=== PATIENT | female | born 1945 | race Caucasian/White ===

== ENCOUNTER 2018-09-12 15:59 | Emergency (ER) | payer MEDICARE, OTHER ==
[~2018-09-12] VITALS: Ht 139.7 cm; Wt 71.8 kg
[~2018-09-12 15:59] MED LIST: ATOR10TA65 PO; CLOB15OI15; DIGO125T PO; DOCU-144 PO; FERR-55 ORAL; FURO-109 PO; GLIM4TAB PO; HYDR-843 PO; LINA1TAB5 PO; LOSA25TA12 PO; METO-319 ORAL; METO-429 PO; POTA20TA8 PO; RIVA20TA5 PO; SERT50TA6 PO; TRAV4OP25 BOTH EYES; [UNRECOGNIZED DRUG - CODE] OP
[2018-09-12 16:00] VITALS: Ht 139.7 cm; Wt 71.8 kg
--- NOTE | 2018-09-12 16:47 | ERD ---
ER Documentation Chief Complaint Chief Complaint mid back pain/AP x3 w/ n/v/dysuria/frequency/urgency HPI 73-year-old woman complaining of epigastric abdominal discomfort, belching, fullness after eating and some nausea x3 days. She states the pain sometimes radiates to the back and she has had similar episodes before. She was triaged as having dysuria and urinary frequency although she denies the symptoms she has no complaints of suprapubic abdominal pain, no complaints of dysuria or hematuria, no back or flank pain. Patient denies chest pain or shortness of breath, no vomiting or diarrhea ROS All systems reviewed and are negative except as per history of present illness. Medications Home Meds Active Scripts Mag Hydrox/Al Hydrox/Simeth (Maalox Advanced Suspension) 355 Ml Oral.susp, 2 TSP PO TID PRN for PAIN AND/OR INFLAMMATION, #12 OZ Prov:FIFI MCNAMARA MD 09/12/18 Ondansetron Hcl* (Zofran*) 4 Mg Tablet, 4 MG PO Q8H PRN for NAUSEA AND/OR VOMITING, #20 TAB Prov:FIFI MCNAMARA MD 09/12/18 Omeprazole* (Omeprazole*) 40 Mg Capsule.dr, 40 MG PO DAILY, #14 CAP Prov:FIFI MCNAMARA MD 09/12/18 Reported Medications Potassium Chloride* (K-Dur*) 10 Meq Tab.prt.sr, 10 MEQ PO DAILY, TAB 09/12/18 Hydroxyzine Hcl* (Hydroxyzine Hcl*) 25 Mg Tablet, 25 MG PO DAILY PRN for ITCHING, #30 TAB 09/12/18 Linagliptin/Metformin HCl (Jentadueto Xr 2.5 mg-1,000 mg) 1 Each Tab.bp.24h, 1 EACH PO BID, TAB 09/12/18 Atorvastatin Calcium (Atorvastatin Calcium) 10 Mg Tablet, 10 MG PO QHS, #30 TAB 09/12/18 Losartan Potassium* (Losartan Potassium*) 25 Mg Tablet, 25 MG PO DAILY, TAB 09/12/18 Furosemide* (Furosemide*) 40 Mg Tablet, 40 MG PO DAILY, TAB 09/12/18 Metoprolol Tartrate* (Lopressor*) 50 Mg Tab, 50 MG PO TID PRN for NEEDED, #60 TAB 09/12/18 Digoxin* (Digitek*) 125 Mcg Tablet, 0.125 MG PO DAILY, TAB 09/12/18 Discontinued Reported Medications Clobetasol Propionate* (Clobetasol Propionate*) 15 Gm Oint, DAILY, #45 06/08/15 Metoprolol Succinate* (Toprol XL*) 50 Mg Tab.er.24h, 50 MG ORAL DAILY, #30 06/08/15 Ferrous Sulfate* (Ferrous Sulfate*) 325 Mg Tablet, 325 MG ORAL BID, #60 06/08/15 Loteprednol Etabonate* (Lotemax*) 5 Ml Drops.susp, 1 DROP OP DAILY, #5 06/08/15 Furosemide* (Lasix*) 40 Mg Tablet, 40 MG PO DAILY, TAB 04/19/14 Hydroxyzine Hcl* (Hydroxyzine Hcl*) 25 Mg Tablet, 25 MG PO TID, TAB 04/19/14 Travoprost* (Travatan*) 0.004%-2.5 Ml Opht, 1 DROP BOTH EYES HS, EA 04/19/14 Sertraline Hcl* (Sertraline Hcl*) 50 Mg Tablet, 50 MG PO DAILY, TAB 04/19/14 Digoxin* (Digoxin*) 0.125 Mg Tab, 0.125 MG PO DAILY, TAB 04/19/14 Glimepiride* (Glimepiride*) 4 Mg Tablet, 4 MG PO BID, TAB 04/19/14 Losartan Potassium* (Losartan Potassium*) 25 Mg Tablet, 25 MG PO DAILY, TAB 04/19/14 Atorvastatin Calcium (Atorvastatin Calcium) 10 Mg Tab, 10 MG PO HS, TAB 04/19/14 Linagliptin-Metformin (Jentadueto) 2.5-1,000 Mg Tablet, 1 TAB PO BID, TAB 04/19/14 Potassium Chloride* (Klor-Con*) 10 Meq Tabsr, 10 MEQ PO DAILY, TAB.SA 04/19/14 Docusate Sodium* (Colace*) 100 Mg Capsule, 100 MG PO BID, CAP 04/19/14 Discontinued Scripts Docusate Sodium* (Colace*) 100 Mg Capsule, 100 MG PO BID, #14 CAP Prov:SHAE DIOR MD 06/08/15 Rivaroxaban* (Xarelto*) 20 Mg Tablet, 20 MG PO WITH DINNER for 30 Days, TAB Prov:KIRIT MAY MD 07/04/14 Metoprolol Tartrate* (Lopressor*) 50 Mg Tab, 50 MG PO TID for 30 Days, TAB Prov:KIRIT MAY MD 07/04/14 Allergies Allergies: Coded Allergies: Penicillins (Verified Allergy, Unknown, 09/12/18) PMhx/Soc Atrial fibrillation, hypertension, congestive heart failure, diabetes mellitus type 2, dyslipidemia, mitral stenosis, major depression History of Surgery: Yes (appendectomy, uterine myoma) Anesthesia Reaction: No Hx Neurological Disorder: No Hx Respiratory Disorders: No Hx Cardiac Disorders: Yes (hypertension, atrial fibrillation, congestive heart failure) Hx Psychiatric Problems: Yes (major depression) Hx Miscellaneous Medical Probl: Yes (renal insufficiency, dyslipidemia, diabetes) Hx Alcohol Use: No Hx Substance Use: No Hx Tobacco Use: No Physical Exam Vitals Vital Signs Date Temp Pulse Resp B/P (MAP) Pulse Ox O2 O2 Flow FiO2 Time Delivery Rate 09/12/18 87 18 167/70 97 Room Air 20:49 (102) 09/12/18 86 15 151/74 97 Room Air 19:14 (99) 09/12/18 97.9 97 18 161/79 97 16:00 (106) Physical Exam GENERAL: Well-developed, well-nourished, well-hydrated, in no apparent distress, looks nontoxic in appearance HEENT: Moist mucous membranes, pink conjunctiva, no cervical spine tenderness or step-off deformities, no goiter, no jaundice or icterus, extraocular movements intact without pain. No submandibular induration, and no pharyngeal erythema CARDIAC: Regular rate and rhythm, no murmurs rubs or gallops LUNGS: Clear bilaterally no wheezing crackles or stridor ABDOMEN: Soft nontender, no guarding, no rigidity, no rebound, no psoas sign no obturator sign. Normoactive bowel sounds SKIN: Warm and dry to touch, no abrasions, contusions, or hematomas, no lacerations, no ecchymosis, no target lesions, and without ulcers EXTREMITIES: No clubbing cyanosis or edema, calves are bilaterally symmetrical, no Homans sign, no popliteal cord sign. Distal pulses equal and bilateral PSYCH: Normal affect without agitation or irritability Result Diagram: 09/12/18 1710 09/12/18 1710 Results 24 hrs Laboratory Tests Test 09/12/18 17:07 09/12/18 17:10 Urine Color YELLOW Urine Clarity CLEAR Urine pH 5.0 Urine Specific [place] 1.020 Urine Ketones NEGATIVE mg/dL Urine Nitrite NEGATIVE mg/dL Urine Bilirubin NEGATIVE mg/dL Urine Urobilinogen 2+ mg/dL Urine Leukocyte Esterase NEGATIVE Tammie/ul Urine Microscopic RBC 10 /HPF Urine Microscopic WBC 2 /HPF Urine Mucus MODERATE /HPF Urine Hemoglobin 2+ mg/dL Urine Glucose NEGATIVE mg/dL Urine Total Protein NEGATIVE mg/dl White Blood Count 8.2 10^3/ul Red Blood Count 5.00 10^6/ul Hemoglobin 13.9 g/dl Hematocrit 41.4 % Mean Corpuscular Volume 82.8 fl Mean Corpuscular Hemoglobin 27.8 pg Mean Corpuscular Hemoglobin Concent 33.6 g/dl Red Cell Distribution Width 13.7 % Platelet Count 192 10^3/UL Mean Platelet Volume 10.2 fl Immature Granulocytes % 0.200 % Neutrophils % 62.8 % Lymphocytes % 26.9 % Monocytes % 7.4 % Eosinophils % 2.1 % Basophils % 0.6 % Nucleated Red Blood Cells % 0.0 /100WBC Immature Granulocytes # 0.020 10^3/ul Neutrophils # 5.1 10^3/ul Lymphocytes # 2.2 10^3/ul Monocytes # 0.6 10^3/ul Eosinophils # 0.2 10^3/ul Basophils # 0.1 10^3/ul Nucleated Red Blood Cells # 0.0 10^3/ul Sodium Level 141 mmol/L Potassium Level 4.1 mmol/L Chloride Level 104 mmol/L Carbon Dioxide Level 25 mmol/L Anion Gap 12 Blood Urea Nitrogen 17 mg/dl Creatinine 0.59 mg/dl Est Glomerular Filtrat Rate mL/min mL/min Glucose Level 142 mg/dl Calcium Level 9.7 mg/dl Total Bilirubin 2.1 mg/dl Direct Bilirubin 0.00 mg/dl Indirect Bilirubin 2.1 mg/dl Aspartate Amino Transf (AST/SGOT) 22 IU/L Alanine Aminotransferase (ALT/SGPT) 21 IU/L Alkaline Phosphatase 94 IU/L Troponin I 0.025 ng/ml Total Protein 8.1 g/dl Albumin 4.6 g/dl Globulin 3.50 g/dl Albumin/Globulin Ratio 1.31 Lipase 56 U/L Current Medications Medications Dose Sig/Jeannie Start Time Status Last (Trade) Ordered Route PRN Stop Time Admin Dose Reason Admin Sodium 1,000 ml @ Q1H STAT 09/12/18 DC 09/12/18 Chloride 1,000 mls/hr IV 16:49 09/12/18 17:13 17:48 Ondansetron 4 mg ONCE STAT 09/12/18 DC 09/12/18 HCl (Zofran IV 17:06 09/12/18 17:14 Inj) 17:07 Ketorolac 15 mg ONCE STAT 09/12/18 DC 09/12/18 Tromethamine IV 17:06 09/12/18 17:15 (Toradol) 17:07 Procedures/MDM IV line was established patient was placed on satellite project site monitor rhythm strip revealed a sinus rhythm at about 80 bpm with upright P and T waves. Patient was afebrile EKG performed, read by me revealed an atrial fibrillation rate controlled at 81 bpm, normal axis, narrow QRS complex, no concerning ST elevations or depressions noted I administered 1 L normal saline IV, Toradol 15 mg IV, Zofran [address] scan of the abdomen pelvis was performed,IMPRESSION: 1. Moderate to markedly enlarged heart. Findings as above suspicious for pulmonary edema. No pleural effusions 2. Borderline hepatomegaly with a somewhat nodular liver contour, correlate for intrinsic liver disease. 3. Wall thickening of the stomach slightly more than expected for its partially collapsed state. Findings are nonspecific and may be within normal limits, reflect mild changes of gastritis, or much less likely neoplasm. Please consider follow-up direct visualization plus or minus tissue sampling. CBC and electrolytes were unremarkable, liver function tests were normal, troponin negative, urinalysis negative for infection. Patient's abdominal symptoms did improve and she had no episodes of vomiting while here, she is able to tolerate p.o. without difficulty. I did ask her again about genitourinary symptoms and patient denies any, I did tell her to follow-up with her PMD for repeat UA in the office in the next 1 week. Differential diagnoses considered, included but not limited to acute coronary syndrome, pulmonary embolism, aortic dissection, abdominal aortic aneurysm, seps is, stroke, meningitis, encephalitis, pneumonia, appendicitis, cholecystitis, bowel obstruction, pyelonephritis, nephrolithiasis, cystitis, as well as metabolic, hematologic, and electrolyte abnormalities. As well as abscess, cellulitis, fractures, and dislocations. Patient feels much better at this time, and vital signs are normal, symptoms have improved. I did give strict instructions to return to the ED if symptoms continue or worsen, patient will otherwise follow-up with primary care physic anil. Patient understood instructions and agreed to plan. Disclaimer: Inadvertent spelling and grammatical errors are likely due to EHR/dictation software use and do not reflect on the overall quality of patient care. Also, please note that the electronic time recorded on this note does not necessarily reflect the actual time of the patient encounter. Departure Diagnosis: Primary Impression: Abdominal pain Abdominal location: epigastric Qualified Codes: R10.13 - Epigastric pain Additional Impression: Gastritis Gastritis type: unspecified gastritis Chronicity: acute Gastritis bleeding: without bleeding Qualified Codes: K29.00 - Acute gastritis without bleeding Condition: FIFI Suresh MD Sep 12, 2018 16:47
[2018-09-12] MEDS ORDERED: SOD CHLORIDE 0.9% 1,000 ML IV STA (16:49)
[2018-09-12] MEDS ORDERED: KETOROLAC 15 MG INJ IV STA (17:06)
[2018-09-12] MEDS ORDERED: ONDANSETRON 4 MG INJ IV STA (17:06)
[2018-09-12] MEDS ORDERED: DIGO125T PO (17:26)
[2018-09-12] MEDS ORDERED: LOSA25TA12 PO (17:27)
[2018-09-12] MEDS ORDERED: FURO40TA4 PO (17:27)
[2018-09-12] MEDS ORDERED: METO-429 PO (17:27)
[2018-09-12] MEDS ORDERED: LINA1TAB7 PO (17:28)
[2018-09-12] MEDS ORDERED: ATOR10TA65 PO (17:28)
[2018-09-12] MEDS ORDERED: HYDR-843 PO (17:29)
[2018-09-12] MEDS ORDERED: POTA10TA37 PO (17:29)
[2018-09-12] MEDS ORDERED: OMEP40CA6 PO (20:46)
[2018-09-12] MEDS ORDERED: ONDA4TAB8 PO (20:46)
[2018-09-12] MEDS ORDERED: MAG355OR14 PO (20:46)
[2018-09-12 20:49] VITALS: BP 167/70; PULSE 87; RESP 18
== END 2018-09-12 21:08 | disposition home or self-care (01) ==
LOC: E/R 15:59
DX: K29.00 Acute gastritis without bleeding (principal); I11.0 Hypertensive heart disease with heart failure; I50.9 Heart failure, unspecified; E11.9 Type 2 diabetes mellitus without complications
CPT/HCPCS: 36415; 51702; 74176; 80053; 81001; 83690; 84484; 85025; 87086; 93005; 96374; 96375; 99285; J1885; J2405; J7030